=== PATIENT | female | born 1955 | race Caucasian/White ===

== ENCOUNTER 2024-11-06 13:32 | Emergency (ER) | payer MEDICARE, MEDICAID, SELFPAY ==
--- NOTE | 2024-11-06 | ECG_ITS ---
Test Reason : cp Blood Pressure : */* mmHG Vent. Rate : 61 BPM Atrial Rate : 61 BPM P-R Int : 176 ms QRS Dur : 82 ms QT Int : 434 ms P-R-T Axes : 77 18 55 degrees QTcB Int : 436 ms Normal sinus rhythm Anterior infarct , age undetermined Abnormal ECG No previous ECGs available Referred By: Generic ED Physician Electronically Signed By: SIERRA ROSE MD
[2024-11-06 13:42] VITALS: BP 125/67; BP 147/39; PULSE 62; PULSE 67; RESP 19; TEMP 36.6; O2SAT 100; BMI 21.8
[2024-11-06 16:00] VITALS: BP 142/66; PULSE 69; RESP 18; O2SAT 96
--- NOTE | 2024-11-06 17:15 | ED_ITS ---
HPI - Allergic Reaction General Chief complaint: Allergic Reaction Stated complaint: ?ALLERGIC REACTION Time Seen by Provider: 11/06/24 16:36 Source: patient Mode of arrival: ambulatory Limitations: no limitations History of Present Illness ED Provider: HPI narrative: Patient is status post liver transplantation 09/09/2024 on prednisone 5 mg daily apparently had pecan pancake at 11 30 a.m. and within half an hour eating patient is started feeling tingling in the lips felt tongue heavy nauseated felt like passing out with rash and itching patient was given 50 mg of Benadryl than 1 L normal saline after arrival patient was feeling much better almost back to normal Related Data Allergies Allergy/AdvReac Type Severity Reaction Status Date / Time codeine Allergy Rash Verified 11/06/24 13:46 Review of Systems Review of Systems: Yes all other systems are reviewed and are negative [facility] Social History Social History Smoked in Last 30 Days: No Use of substances other than those prescribed or required for medical reasons: No Advance Directives: No Advance Directives Information Provided: No Do you have a plan to hurt others: No Plan Physical Exam ED Vital Signs: Vital Signs - 24 hr 11/06/24 13:42 11/06/24 17:28 Temperature 97.8 F Pulse Rate 62 62 Respiratory Rate 19 Blood Pressure 147/39 H 155/59 H Pulse Oximetry 100 Oxygen Delivery Method Room Air BMI result Body Mass Index 21.8 Appearance: Alert. Oriented X3. No acute distress. Eyes: PERRLA, No Nystagmus ENT: Pharynx normal. Oral Mucosa moist tongue normal uvula normal no stridor Neck: Normal inspection. Neck supple. CVS: Normal heart rate and rhythm. Pulses normal. Respiratory: No respiratory distress. Equal air entry bilateral, no wheezing/rales/rhonchi Abdomen: Soft and nontender. Bowel sounds are present, no mass palpable, no CVA tenderness Skin: Skin warm and dry. Normal skin color. Normal skin turgor. Extremities: No lower extremity edema. No calf tenderness Neuro: Oriented X 3. No motor deficit. No sensory deficit.No cerebellar signs , cranial nerves II-XII intact Medications Administered Discontinued Medications Generic Name Dose Route Start Last Admin Trade Name Freq PRN Reason Stop Dose Admin Famotidine 20 mg 11/06/24 16:48 11/06/24 17:19 Famotidine/Pf 20 Mg/2 Ml Vial IVPUSH 11/06/24 16:49 20 mg ONCE ONE Administration Methylprednisolone Sodium Succinate 125 mg 11/06/24 16:48 11/06/24 17:19 Methylprednisolone Sod Succ 125 Mg/2 Ml Vial IVPUSH 11/06/24 16:49 125 mg ONCE ONE Administration Medical Decision Making Independent Interpretation I performed an independent interpretation of an: EKG Interpretation: Normal sinus rhythm heart rate 61 beats per minute normal interval normal axis no acute ST-T no acute ischemia Discharge Plan Discharge Clinical Impression: Allergic reaction Patient Disposition: Home, Self-Care Instructions: General Allergic Reaction (ED) Additional Instructions: Cause of allergic reaction is not clear likely the food which you had Follow with your PCP for further management Take Benadryl 1-2 tablet every 6 hours as needed for itching/ rash Your blood sugar will be elevated as you were given steroid in the ER take insulin accordingly Print Language: Latvian
[2024-11-06 17:28] VITALS: BP 155/59; PULSE 62
[2024-11-06 17:30] VITALS: BP 160/53; PULSE 66
[2024-11-06 17:32] VITALS: BP 157/54; PULSE 67
[2024-11-06 17:44] VITALS: BP 157/54; PULSE 67; RESP 18; TEMP 36.6; O2SAT 96
== END 2024-11-06 17:51 | disposition home or self-care (01) ==
PROVIDERS: Emergency Provider Internal Medicine; PCP Nurse Practitioner Family
DX: T78.1XXA Other adverse food reactions, not elsewhere classified, initial encounter (principal); T78.49XA Other allergy, initial encounter; X58.XXXA Exposure to other specified factors, initial encounter; Z94.4 Liver transplant status
CPT/HCPCS: 93005; 96374; 96375; 99284; 99285; J1308; J2919

== ENCOUNTER → 2024-11-06 13:55 | Outpatient (BNV) | payer MEDICARE, MEDICAID, SELFPAY | PROVIDERS: Emergency Provider Internal Medicine; PCP Nurse Practitioner Family; Visit Provider Internal Medicine Cardiovascular Disease | DX: R94.31 Abnormal electrocardiogram [ECG] [EKG] (principal); R07.9 Chest pain, unspecified | CPT/HCPCS: 93010 ==